=== PATIENT | male | born 1960 | race Caucasian/White ===

== ENCOUNTER 2019-06-06 10:01 | Emergency (ER) | payer MEDICARE, MEDICAID ==
[~2019-06-06] VITALS: Ht 185.4 cm; Wt 92.1 kg
[2019-06-06] MEDS ORDERED: PRADAXA150 MG PO (10:18)
[2019-06-06] MEDS ORDERED: CARVEDILOL25 MG PO (10:19)
[2019-06-06] MEDS ORDERED: AMLODIPINE BESY10 MG PO (10:19)
[2019-06-06] MEDS ORDERED: LEXAPRO20 MG PO (10:20)
[2019-06-06] MEDS ORDERED: DESYREL150 MG PO (10:20)
[2019-06-06] MEDS ORDERED: TIVICAY50 MG PO (10:21)
[2019-06-06] MEDS ORDERED: DESCOVY 200-251 EACH PO (10:21)
[2019-06-06] MEDS ORDERED: MYTESI PO (10:22)
[2019-06-06] MEDS ORDERED: NORCO 5-325 TA1 EAC1 PO (11:10)
[2019-06-06] MEDS ORDERED: DOXYCYCLINE 10100 MG PO (11:10)
[2019-06-06 11:34] VITALS: BP 137/82
== END 2019-06-06 11:35 | disposition home or self-care (01) ==
LOC: M.ERS 10:01
DX: L60.0 Ingrowing nail (principal); M79.672 Pain in left foot; I10 Essential (primary) hypertension; I48.91 Unspecified atrial fibrillation; F17.210 Nicotine dependence, cigarettes, uncomplicated

== ENCOUNTER 2019-07-16 14:01 | Emergency (ER) | payer MEDICARE, MEDICAID ==
[~2019-07-16] VITALS: Ht 182.9 cm; Wt 90.7 kg
[~2019-07-16 14:01] MED LIST: AMLODIPINE BESY10 MG PO; CARVEDILOL25 MG PO; DESCOVY 200-251 EACH PO; DESYREL150 MG PO; DOXYCYCLINE 10100 MG PO; LEXAPRO20 MG PO; MYTESI PO; NORCO 5-325 TA1 EAC1 PO; PRADAXA150 MG PO; TIVICAY50 MG PO
[2019-07-16 14:52] LABS: INFLUENZA A ANTIGEN Positive (Negative); INFLUENZA B ANTIGEN Negative (Negative)
[2019-07-16] MEDS ORDERED: VENTOLIN HFA 1818 GM INH (16:15)
[2019-07-16] MEDS ORDERED: PROMETH-CODEIN 65 ML PO (16:15)
[2019-07-16] MEDS ORDERED: TAMIFLU75 MG PO (16:15)
[2019-07-16 16:21] VITALS: BP 140/79
== END 2019-07-16 16:22 | disposition home or self-care (01) ==
LOC: M.ERS 14:01
PROVIDERS: Nurse Practitioner Family
DX: J10.1 Influenza due to other identified influenza virus with other respiratory manifestations (principal); I10 Essential (primary) hypertension; I48.91 Unspecified atrial fibrillation; Z98.84 Bariatric surgery status; Z98.890 Other specified postprocedural states